=== PATIENT | female | born 1975 | race Caucasian/White ===

== ENCOUNTER 2018-11-02 05:35 | Observation (INO) | payer BC ==
--- NOTE | 2018-10-28 16:20 | GHP ---
[f rep st] PREOP HISTORY AND PHYSICAL DATE OF ADMISSION: 11/02/2018 DATE OF OPERATION: 11/02/2018. DATE OF DICTATION: 10/28/2018. PREOPERATIVE DIAGNOSES: 1. Persistent severe cervical dysplasia. 2. Menorrhagia. SURGERY TO BE PERFORMED: 1. Total laparoscopic hysterectomy. 2. Bilateral salpingectomy. HISTORY OF PRESENT ILLNESS: The patient is a 42-year-old 2, para 2-0-0-2, who originally pre sented with an abnormal Pap smear on her annual exam in July of 2017. That Pap was negative for dysplasia, but was positive for high risk HPV type 16. The recommendation was then to proceed with c olposcopy. She had a colposcopy performed in September of 2017, which was was positive for severe dysp lasia CIN3, endocervical curettings were negative. A LEEP (loop electrosurgical excision procedure) was performed in December of 2017. 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 Margins of the specimen were no t identified. The patient had a followup Pap smear done in July of 2018 that Pap was significant for atypical squamous cells, cannot exclude HGSIL and was also positive for type 16. Followup colpo scopy in August 2018, revealed persistent CIN2-3. At that point, we discussed followup procedures a repeat excisional procedure with either a repeat LEEP or a cold knife cone or a more definitive pro cedure. During this time, patient has had difficulties with very heavy periods, periods lasting parmjit ral days, heavy flow and difficulties controlling her symptoms, and we discussed possible endometrial ablation versus definitive management with a hysterectomy. Because patient was concerned about her cervical health and persistent HGSIL, and she has completed her childbearing, she would like to have definitive management with a total laparoscopic hysterectomy, bilateral salpingectomy, and I am in ag reement with that plan. PAST OBSTETRICAL HISTORY: In February 2011, she had a viable male, 8 pounds 9 ounce, vaginal delivery at [facility] without complication and in March of 2013 also a viable male, 8 pounds 0 ounces without complication. PAST GYNECOLOGICAL HISTORY: She had a normal menstrual triad with menarche at age 15, cycles every 2 6-27 days, heavy flow 10-12 days. Her had a vasectomy that was her control. They are completed childbearing. Prior to her Pap in 2017, her prior Pap had been 2014 and she had abnormal P ap with a positive HPV, but no other surgeries or procedures on her cervix. PAST MEDICAL HISTORY: Significant for bipolar and depression. She had a suicide attempt in her teen s. She feels that she is stable and she is off medications. She also had a history of frequent UTIs as a child, and some UTIs as an adult. MEDICATIONS: No current medication. No current issues. PAST SURGICAL HISTORY: History of an appendectomy in 2009 and ureter surgery as a 7-year-old to rem ove scar tissue. She is unsure of the exact procedure. ALLERGIES: She is allergic to not Macrobid, it causes dizziness. She is allergic to Neurontin also causes issues. SOCIAL HISTORY: She is . She lives with her and her 2 children. 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 She denies tobacco. Occasional alcohol use. No drug use. Caffeine 1 a day. Exercise moderate 2-3 times a week. FAMILY HISTORY: Noncontributory. OBJECTIVE: VITAL SIGNS: Blood pressure is 98/60, weight is 152. GENERAL: In general she is well-d eveloped, well-nourished white female in no acute distress. LUNGS: Are clear to auscultation bilatera lly. HEART: Regular rate and rhythm. No murmurs. ABDOMEN: Soft, nontender, nondistended. Normal bowel sounds. PELVIC EXAM: Normal external genitalia. Normal cervix. Well-healed LEEP scar. Uter us is anteverted, anteflexed, mobile, small, nontender. No adnexal masses. ASSESSMENT/PLAN: A 42-year-old 2, para 2-0-0-2, with persistent CIN3, status post Loop elect rosurgical excision procedure with positive margins, as well as menorrhagia. She will have a total l aparoscopic hysterectomy, bilateral salpingectomy. The patient was consented for the procedure. She understood the risks and benefits. The risks including bleeding, infection, damage to organs, bowel , bladder, nerves, blood vessels, ureters, need for open procedure, need for additional procedures. She understood these risks and benefits and agreed to proceed. /[id number]/MODL
[~2018-11-02 05:35] MED LIST: LIDOCAINE 1% 2 ML INJ ID PRN; LR 1,000 ML IV ONE; ceFAZolin 2 GM/DEXTROSE 100 ML IV ONE
--- NOTE | 2018-11-02 05:55 | POSTANESTH ---
Post Anesthetic Evaluation Cardiovascular Status: Normal, Stable Respiratory Status: Normal, Stable Level of Consciousness/Mental Status: Can Participate in Eval, Mildly Sleepy, Arousable (Pt states she feels dizzy.) Pain Control: Adequate, Prn Tx Ordered Nausea/Vomiting Control: Adequate, Prn Tx Ordered (Pt feels slightly nauseated. Declined treatment at this time.) Complications Possibly Related to Anesthesia: None Noted
--- NOTE | 2018-11-02 05:59 | PDANEPAE ---
ANE History of Present Illness 42 yo female for HPV/high grade cervical dysplasia and h/o menorrhagia for total abd hysterectomy with B salpingectomy. 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; hypercholesterolemia by lab results in 2016 - Pulmonary History Hx COPD: No Hx Asthma/Reactive Airway Disease: No Hx Recent Upper Respiratory Infection: No Hx Oxygen in Use at Home: No Hx Sleep Apnea: No Sleep Apnea Screening Result - Last Documented: Negative - Neurologic History Hx Cerebrovascular Accident: No Hx Seizures: No Hx Dementia: No - Endocrine History Hx Diabetes: No Hypothyroid: No Hyperthyroid: No Obesity: no - Renal History Hx Renal Disorders: No - Liver History Hx Hepatic Disorders: No - Neurological & Psychiatric Hx Hx Neurological and Psychiatric Disorders: Yes Neurological / Psychiatric History Comment: depression, bipolar d/o, h/o suicide attempt as a teenager; off all meds at this time - Cancer History Hx Cancer: No Cancer History Comment: skin ca on nose - Congenital Disorder History Hx Congenital Disorders: No - GI History Hx Gastrointestinal Disorders: No - Other Health History Other Health History: bruises easily - Chronic Pain History Chronic Pain: Yes (back pain) - Surgical History Prior Surgeries: none in last 5 yrs. appendectomy 2009 ANE Review of Systems Review of Systems: - Exercise capacity METS (RN): 4 METS - Systems Constitutional: Reports: recent illness Cardiac: Reports: no symptoms Respiratory: Reports: cough (Pt had fever/cough/nasal symptoms 2 weeks ago, now resolved for about 10 days) ANE Patient History - Allergies Allergies/Adverse Reactions: gabapentin [From Neurontin] Allergy (Intermediate, Verified 10/18/18 16:10) Rash nitrofurantoin [From Macrobid] Allergy (Intermediate, Verified 10/18/18 16:10) DIZZY/NAUSEA nitrofurantoin macrocrystalline [From Macrobid] Allergy (Intermediate, Verified 10/18/18 16:10) DIZZY/NAUSEA - Home Medications Home Medications: Cyclobenzaprine [Flexeril 10 MG (*)] 10 mg PO DAILY PRN 10/13/18 [Last Taken 01/23] Herbals/Supplements -Info Only 1 ea PO DAILY 10/13/18 [Last Taken 10/26/18] Ibuprofen [Motrin (*)] 200 - 400 mg PO Q8H PRN 10/13/18 [Last Taken 10/26/18] Multivitamins [Multivitamin (*)] 1 each PO DAILY 10/13/18 [Last Taken 10/26/18] - NPO status NPO Since - Liquids (Date): 11/02/18 NPO Since - Liquids (Time): 04:00 (Gatorade) NPO Since - Solids (Date): 11/01/18 NPO Since - Solids (Time): 21:00 (dinner) - Anes Hx Anes Hx: post operative nausea - Smoking Hx Smoking Status: Never smoked Marijuana use: No - Alcohol Use Alcohol Use: Rarely - Family Anes Hx Family Anes Hx: neg - N/A Family Hx Anesthesia Complications: none ANE Labs/Vital Signs - Labs - CBC HGB: 15 HCT: 45 Platelet Count: 239 - Vital Signs Vital Signs: reviewed preoperatively; see RN documention for details Height: 177.8 cm Weight: 68.039 kg ANE Physical Exam - Airway Neck exam: FROM Mallampati Score: Class 2 Mouth exam: normal dental/mouth exam - Pulmonary Pulmonary: no rales or rhonchi, clear to auscultation - Cardiovascular Cardiovascular: regular rate and rhythym - ASA Status ASA Status: II ANE Anesthesia Plan Anesthesia Plan: general endotracheal anesthesia
[2018-11-02] MEDS ORDERED: BUPIVACAINE 0.5% 30 ML SDV ONE (06:22)
[2018-11-02] MEDS ORDERED: DEXAMETHASONE 4 MG/ML VIAL ONE (07:03)
[2018-11-02] MEDS ORDERED: ONDANSETRON 4 MG/2 ML VIAL ONE (07:03)
[2018-11-02] MEDS ORDERED: ROCURONIUM 50 MG/5 ML VIAL ONE ×2 (07:03→08:18)
[2018-11-02] MEDS ORDERED: PROPOFOL/EMULSION 500 MG/50 ML BOTTLE IV ONE (07:03)
[2018-11-02] MEDS ORDERED: LIDOCAINE 2% 5 ML SDV ONE (07:03)
--- NOTE | 2018-11-02 07:09 | PDHPUP ---
History & Physical Update H&P update statement: This history and physical update is based on an assessment of the patient which was completed after admission or registration (within 24 hours), but prior to the surgery/procedure. H&P update: H&P reviewed & patient examined, no change in patient's condition since H&P completed
[2018-11-02] MEDS ORDERED: ePHEDrine SULFATE 25 MG/5 ML SYR ONE (08:33)
[2018-11-02] MEDS ORDERED: PROPOFOL 200 MG/20 ML VIAL ONE (08:46)
[2018-11-02] MEDS ORDERED: KETOROLAC 30 MG/1 ML SDV ONE (09:01)
[2018-11-02] MEDS ORDERED: NEOSTIGMINE METHYLSULFATE 5 MG/5 ML SYR ONE (09:09)
[2018-11-02] MEDS ORDERED: GLYCOPYRROLATE 0.2 MG/1 ML VIAL ONE ×2 (09:09→09:16)
[2018-11-02] MEDS ORDERED: LR 500 ML IV PRN (09:13)
[2018-11-02] MEDS ORDERED: PROMETHAZINE HCL 25 MG/ML INJ IVP PRN (09:13)
[2018-11-02] MEDS ORDERED: ACETAMINOPHEN 500 MG TAB PO PRN (09:13)
[2018-11-02] MEDS ORDERED: NALOXONE HCL 0.4 MG/ML INJ IVP PRN ×2 (09:13→09:29)
[2018-11-02] MEDS ORDERED: DIAZEPAM 5 MG/ML 1 ML SYR IVP PRN (09:13)
[2018-11-02] MEDS ORDERED: ALBUTEROL 3 ML DEYVIAL IH PRN (09:13)
[2018-11-02] MEDS ORDERED: oxyCODONE IR 5 MG TAB PO PRN (09:13)
[2018-11-02] MEDS ORDERED: fentaNYL 100 MCG/2 ML INJ IVP PRN (09:13)
[2018-11-02] MEDS ORDERED: ONDANSETRON DISINTEGRATING 4 MG TAB PO PRN (09:26)
[2018-11-02] MEDS ORDERED: ONDANSETRON 4 MG/2 ML VIAL IVP PRN (09:26)
[2018-11-02] MEDS ORDERED: BISACODYL 10 MG SUPP PR PRN (09:29)
[2018-11-02] MEDS ORDERED: POLYETHYLENE GLYCOL 3350 17 GM PKT PO PRN (09:29)
[2018-11-02] MEDS ORDERED: MAGNESIUM HYDROXIDE 30 ML UDCUP PO PRN (09:29)
[2018-11-02] MEDS ORDERED: LACTULOSE 20 GM/30 ML UDCUP PO PRN (09:29)
[2018-11-02] MEDS ORDERED: HYDROmorphONE/DILAUDID 6 MG/30 ML PCA IV PRN (09:29)
[2018-11-02] MEDS ORDERED: LR 1,000 ML IV SCH (09:30)
--- NOTE | 2018-11-02 09:32 | POSTOPPROG ---
Post Op Note Date of Operation: 11/02/18 Surgeon: Siobhan Valladares Sulfonation Equipment Operator: Dr Lc Becerra Anesthesiologist: Dr Antionette Michelle Anesthesia: GET(General Endotracheal) Pre-op Diagnosis: persistent severe cervical dysplsia, menorrhagia Post-op Diagnosis: same Procedure: TLH B salpingectomy Findings: normal uterus, tubes and ovaries Inf/Abcess present in the surg proc area at time of surgery?: No Depth: Organ Space EBL: 50-100 Total fluids administered: 850 Complications: none Specimen(s): uterus with cervix, bilateral fallopian tubes
[2018-11-02] MEDS ORDERED: PROMETHAZINE HCL 25 MG/ML INJ ONE (09:39)
[2018-11-02] MEDS ORDERED: fentaNYL 100 MCG/2 ML INJ ONE (09:40)
--- NOTE | 2018-11-02 10:30 | GOP ---
[f rep st] OPERATIVE REPORT DATE OF OPERATION: 11/02/2018 SURGEON: Siobhan Valladares MD ENVIRONMENTAL SERVICES DIRECTOR: Dr. Jose Ramon Becerra ANESTHESIA: General anesthesia. ANESTHESIOLOGIST: Dr. Antionette Michelle PREOPERATIVE DIAGNOSIS: 1. Persistent severe cervical dysplasia. 2. Menometrorrhagia. POSTOPERATIVE DIAGNOSIS: PROCEDURE PERFORMED: Total laparoscopic hysterectomy, bilateral salpingectomy. FINDINGS: SPECIMENS: Pathologic, uterus with cervix and bilateral fallopian tubes. ESTIMATED BLOOD LOSS: 50 cc. INDICATIONS: The patient is a 42-year-old 2, para 2-0-0-2 who presented with an abnormal Pap smear on her annual exam in July of 2017. That Pap was negative for dysplasia, but positive for high-risk HPV type 16. We proceeded with colposcopy. Colposcopy was performed in September of 2017, which was positive for severe dysplasia DEMIAN-III. A LEEP was performed in December of 2017. Pathology o f the LEEP specimen was consistent with high-grade intraepithelial neoplasia, DEMIAN II to III, positive for type 16 and had positive endocervical margins. The patient had a followup Pap in July 18, that Pap was significant for atypical squamous cells, cannot exclude HGSIL, also positive for typ e 16. Followup colposcopy in August of 2018, revealed persistent DEMIAN II to III. At that point, we discussed a repeat LEEP procedure versus a cold knife cone procedure versus a definitive procedure. Patient reports very heavy periods, menorrhagia lasting several days with heavy flow, difficulty con trolling her symptoms, and her has had a vasectomy. They have completed childbearing. We di scussed cervical procedure with an endometrial ablation versus a hysterectomy. The patient wished to have definitive management with a hysterectomy. She was consented for the procedure. She understoo d the risks and benefits, the risks, including bleeding, infection, damage to organs, ovaries, bowel, bladder, nerves, blood vessels, ureters, need for open procedure, need for additional procedures. S he understood these risks and benefits and agreed to proceed. DESCRIPTION OF PROCEDURE: Patient was taken to the operating room where she was placed under general anesthesia without difficulty. She was prepped and draped in the dorsal lithotomy position and a Fo balaji catheter was placed in her bladder. After a WHO time-out was performed an open-sided speculum was placed in the vagina, and a single-toot h tenaculum was used to grasp the anterior lip of the cervix. The uterus sounded to 9 cm. The cervi x was progressively dilated with Duron dilators to a #8. The 8 cm ADRIENNE with a large cervical cup was placed in the vagina without difficulty and advanced around the cervix, and the tenaculum was remove d. Attention was then turned to the abdominal portion of the procedure, where after injection of Marcain e, a 5 mm skin incision was made in the infraumbilical skin fold and a 5 mm atraumatic trocar was jackson taylor under direct visualization through that incision. Pneumoperitoneum was created with carbon dioxi de gas. Patient was placed in steep Trendelenburg. After injection of Marcaine, a 1 cm skin incisio n was made in the left lower quadrant and a 1 cm trocar was placed through that incision and a 5 mm i ncision and trocar was placed in the last all under direct visualization without difficulty. The uterus was grossly within normal limits, as were the tubes and ovaries. The uterus was deviated to the patient's right. The left fallopian tube was grasped with the atraumatic grasper and the Liga Sure was used to cauterize and dissect from the fimbriated end along the mesosalpinx to the cornual r egion of the tube. The tube was amputated and removed from the 10 mm port. Dissection was then perf ormed with the LigaSure along the round ligament, the utero-ovarian ligaments and along the cardinal ligament in stages until the broad ligament was identified and dissected into the anterior and chemical operator ior leaf. The anterior leaf was then brought along the cervical margin over the cervical cup and the bladder flap was created with the LigaSure. The uterine vessels were identified, cauterized, and cu t with the LigaSure and dissection was performed along the anterior and posterior leaf, and the cervi bernadine cup was identified along the entire left margin of the cervix. Identical procedure was then perf ormed on the right side of the uterus. The right fallopian tube was grasped and the LigaSure was use d to dissect from the fimbriated end along to the cornual region. The tube was amputated and removed through the 10 mm port. The uterus was then deviated and dissection was performed along the round ligament to the utero-ovari an ligaments, the cardinal ligaments. The broad ligament was dissected and the dissection was abram d out from the anterior and posterior leaf along the cervical cup to meet from the left side with lef t-sided dissection. The uterine vessels were also cauterized and cut, and good hemostasis was assure d. There was a normal tobin of the uterus as the blood vessels were cut and removed. Everything w as free from the dissection. The balloon from the ADRIENNE was inflated, and the electrocautery hook was used on the ligature to dissect along the cervical cap to make the colpotomy. There was some diffic ulty in continuing pneumoperitoneum. The vagina was packed with moist laparotomy sponges carefully t o continue the pneumoperitoneum to allow for the dissection. Dissection was performed circumferentia lly along the cervical cap and the uterus was removed vaginally without difficulty. A lap in a glove was placed in the vagina to allow for pneumoperitoneum and the VCare 0 Vicryl lock suture was used t o close the colpotomy from right to left using care to include the anterior and posterior branches of the vaginal mucosa and avoid the bladder mucosa or other tissue. There were small areas of bleeding along the left margin of the dissection and these were cauterized with the LigaSure and good hemosta sis was assured. The ovaries were visualized and normal in the pelvis. The pelvis was copiously irrigated with warm normal saline and the inspection on the remainder of the uterus was normal. Celi was sprayed on the vaginal cuff to ensure hemostasis. The 1 cm trocar wa s removed and a fascial closure device was used to close the fascia with #1 Vicryl on the left. The trocars were then removed under direct visualization. Pneumoperitoneum was allowed to escape, and th e incisions were closed with 4-0 Monocryl. The sponge was removed from the vagina. The patient tole rated the procedure well. Sponge, lap, needle, and instrument counts were correct x3. Patient went to the recovery room in good condition. IV FLUIDS: 350/850 cc. URINE OUTPUT: 200 cc. /[id number]/MODL
[2018-11-02] MEDS: KETOROLAC 30 MG/1 ML SDV IVP SCH ×3 (10:51→23:04)
[2018-11-02] MEDS: oxyCODONE IR 5 MG TAB PO PRN ×2 (13:09→17:07)
--- NOTE | 2018-11-02 18:34 | SOAPPROG ---
SOAP Progress Note Assessment/Plan: Assessment: 42 y/o POD 0 s/p TLH BS secondary to persistent cervical dysplasia and menorrhagia Plan: Routine POC. Anticipate d/c home tomorrow. 11/02/18 18:33 Subjective: Pt is doing well. She is tolerating reg diet, has ambulated in the hallway and has her tucker removed. She has taken Po Oxy and tolerated well and pain is controlled in conjunction with Toradol. No vaginal bleeding. Objective: Vital Signs Temp Pulse Resp BP Pulse Ox 36.4 C 69 16 85/56 L 96 11/02/18 15:33 11/02/18 15:33 11/02/18 15:33 11/02/18 15:33 11/02/18 15:33 11/01/18 11/02/18 11/03/18 05:59 05:59 05:59 Intake Total 4236 Output Total 850 Balance 3386 - Pending Discharge Pending Discharge Within 24 Hours: Yes Pending Discharge Date: 11/03/18 Pending Discharge Time: 11:00 Physical Exam - Physical Exam General Appearance: WD/WN, alert, no apparent distress Neck: non-tender, full range of motion, supple Respiratory: chest non-tender, lungs clear, normal breath sounds Cardiac/Chest: regular rate, rhythm Abdomen: normal bowel sounds, other (incisions c/d/i) Extremities: swelling (no), Everetet's sign (neg) ICD10 Worksheet Patient Problems: Problems Problem Status Onset S/P laparoscopic hysterectomy Acute - ICD10 Problem Qualifiers (1) S/P laparoscopic hysterectomy
[2018-11-02] MEDS: ACETAMINOPHEN 500 MG TAB PO PRN (18:48)
[2018-11-02] MEDS: SENNOSIDES/DOCUSATE SODIUM TAB PO SCH (23:04)
[2018-11-03] MEDS: KETOROLAC 30 MG/1 ML SDV IVP SCH (04:56)
[2018-11-03 05:43] LABS: PLATELET COUNT 186 10^3/uL (150-400)
[2018-11-03 08:17] VITALS: BP 83/58
[2018-11-03] MEDS: ACETAMINOPHEN 500 MG TAB PO PRN (08:45)
[2018-11-03] MEDS: SENNOSIDES/DOCUSATE SODIUM TAB PO SCH (08:46)
[2018-11-03] MEDS ORDERED: IBUPROFEN 600 MG TAB PO SCH (09:28)
--- NOTE | 2018-11-03 09:59 | SOAPPROG ---
SOAP Progress Note Assessment/Plan: Assessment: 42 y/o POD 1 s/p TLH BS secondary to persistent cervical dysplasia and menorrhagia Plan: Doing well. D/c home today with Rx Ibuprofen and Oxycodone. Follow-up @ [facility] 2 weeks. Call for fever, bleeding or other concerns. 11/02/18 18:33 11/03/18 09:58 Subjective: Pt is doing great this am. She has good pain control with mostly just Ibuprofen and Tylenol. She is ambulating and voiding without difficulty and has only small spotting. She is tolerating reg diet and denies nausea. She is ready to d/c home. Objective: Vital Signs Temp Pulse Resp BP Pulse Ox 36.8 C 80 17 83/58 L 94 11/03/18 08:00 11/03/18 08:00 11/03/18 08:00 11/03/18 08:00 11/03/18 08:00 Laboratory Results 11/03/18 05:00 11/02/18 11/03/18 11/04/18 05:59 05:59 05:59 Intake Total 4236 Output Total 2650 Balance 1586 Physical Exam - Physical Exam General Appearance: WD/WN, alert, no apparent distress Neck: non-tender, full range of motion, supple Respiratory: chest non-tender, lungs clear, normal breath sounds Cardiac/Chest: regular rate, rhythm Abdomen: normal bowel sounds, other (incision c/d/i) Extremities: swelling (no), Everette's sign (neg) ICD10 Worksheet Patient Problems: Problems Problem Status Onset S/P laparoscopic hysterectomy Acute - ICD10 Problem Qualifiers (1) S/P laparoscopic hysterectomy
--- NOTE | 2018-11-03 11:40 | GDS ---
[f rep st] DISCHARGE SUMMARY ADMITTING DIAGNOSIS: Status post total laparoscopic hysterectomy and bilateral salpingectomy. HISTORY AND HOSPITAL COURSE: The patient is a 42-year-old 2, para 2-0-0-2, who underwent a t otal laparoscopic hysterectomy and bilateral salpingectomy on 11/02/2018 for persistent cervical dysp lasia and menorrhagia. Surgery went well without complications. Estimated blood loss was 50 cc. Erwin maloney was admitted for 24-hour observation post surgery. She had IV Toradol p.r.n. and was started on ox ycodone when she was able to tolerate a regular diet. She had her Miramontes discontinued in the evening of the , and she overall did well. On the morning of the , she was tolerating a regular diet , had her pain well controlled with p.o. medications, was ambulating and voiding without difficulty, and having minimal bleeding, and she was ready to discharge home. The patient will be discharged [facility] with a prescription for oxycodone and ibuprofen p.r.n. Her postoperative hematocrit was 36. She d oes not need supplemental iron. She will follow up with [facility] in 2 weeks and she has precautions to call for fever, heavy vaginal bleeding, drainage from the incisions, or any other conc erns. /[id number]/MODL
== END 2018-11-03 12:30 | disposition home or self-care (01) ==
LOC: F3N 05:35 → F3E 08:08 → FOB 10:21
PROVIDERS: ADMIT Obstetrics & Gynecology; ATTEND Obstetrics & Gynecology
PROC: 0UT9FZZ Resection of Uterus, Via Natural or Artificial Opening With Percutaneous Endoscopic Assistance (ICD-10-PCS; principal; 2018-11-02 07:15)
PROC: 0UT74ZZ Resection of Bilateral Fallopian Tubes, Percutaneous Endoscopic Approach (ICD-10-PCS; principal; 2018-11-02 07:15)
DX: N92.0 Excessive and frequent menstruation with regular cycle (principal); D06.9 Carcinoma in situ of cervix, unspecified; F31.9 Bipolar disorder, unspecified
CPT/HCPCS: 58571; 90471; G0378; G0008; J0690; J1100; J1885; J2270; J2405; J2550; J2704; J2710; J3010